=== PATIENT | female | born 1980 | race African-American/Black ===

== ENCOUNTER 2025-03-05 15:30 | Emergency (ER) | payer MEDICAID, SELFPAY ==
--- NOTE | 2025-03-05 15:31 | ED_ITS ---
HPI - Recheck/Abnormal Lab/Rx General Chief Complaint: Recheck/Abnormal Lab/Rx Stated Complaint: abn labs from [facility] Time Seen by Provider: 03/05/25 17:59 Source: patient and EMS Mode of arrival: EMS Limitations: no limitations and other History of Present Illness ED Provider: Toy Block PA-C HPI narrative: 45-year-old female brought in by ambulance with medical history of HTN, Bipolar 1 and 2, PTSD, anxiety, polysubstance use disorder presents to the emergency department due to abnormal labs that were drawn at [facility] today. She states she is feeling aggravated that she had to leave the facility. She does not have any physical complaints at this time. Denies chest pain, shortness of breath, nausea, vomiting, diarrhea, headache, fever, muscle aches. MD complaint: other (Hypokalemia) Related Data Allergies Allergy/AdvReac Type Severity Reaction Status Date / Time No Known Allergies Allergy Verified 03/05/25 15:44 Review of Systems 2 Review of Systems: CONST: Negative for fever, body aches and chills. HENT: Negative for neck pain/stiffness, headache, congestion, sore throat, swelling. EYES: Negative for discharge/pain or vision changes. RESP: Negative for cough/hemoptysis and shortness of breath. CV: Negative chest pain, difficulty breathing, palpitations. ABD: Negative pain, nausea, vomiting. : Negative increase frequency, dysuria, blood in urine or stool. MUSC: Negative for muscle aches, edema. SKIN: Negative rash, lesions/sores. NEURO: Negative headache, dizziness, weakness. Yes all other systems are reviewed and are negative [facility] Social History Social History Alcohol intake: former Smoked in Last 30 Days: No Substance Use Type: Crack/Cocaine, Heroin and Opiates Substance Use Frequency: Chronic Longstanding Advance Directives: No Advance Directives Information Provided: No Physical Exam 2 Vital Signs: Vital Signs: Last Vital Signs Temp 98.3 F 03/05/25 23:30 Pulse 96 03/05/25 23:30 Resp 18 03/05/25 23:30 BP 145/96 H 03/05/25 23:30 Pulse Ox 98 03/05/25 23:30 O2 Del Method Room Air 03/05/25 22:00 BMI result Body Mass Index 35.7 GENERAL APPEARANCE: ?AxOx4, generally well-appearing, no acute distress. HEENT: ?NC, AT. MMM. EOMI, clear conjunctiva, oropharynx clear. NECK: ?Supple without lymphadenopathy.? No stiffness or restricted ROM. HEART:? Normal rate and regular rhythm, normal S1/S1, no m/r/g LUNGS:? CTAB, moving air well. No crackles or wheezes are heard. ABDOMEN: ?Soft, nontender, nondistended with good bowel sounds heard. BACK: No CVAT, no obvious deformity. EXTREMITIES: ?Without cyanosis, clubbing or edema. NEUROLOGICAL: ?Grossly nonfocal. Alert and oriented, moving all 4 extremities. Observed to ambulate with normal gait. Skin: ?Warm and dry without any rash. Course Course Course Narrative: sign out pending repeat K she is asymptomatic will recc oral K as outpatient improved to 3.2 will dose with additional 20meq K Medications Administered Discontinued Medications Generic Name Dose Route Start Last Admin Trade Name Freq PRN Reason Stop Dose Admin Potassium Chloride 10 meq in 100 mls @ 100 mls/hr 03/05/25 16:45 03/05/25 21:00 Potassium Chloride/H20 IV 03/05/25 20:44 Infused Q1H FAYE Infusion Potassium Chloride 40 meq 03/05/25 16:31 03/05/25 16:51 Potassium Chloride Er 20 Meq Tab.Er.Prt PO 03/05/25 16:32 40 meq ONCE ONE Administration Potassium Chloride 20 meq 03/05/25 22:26 03/05/25 22:38 Potassium Chloride Er 20 Meq Tab.Er.Prt PO 03/05/25 22:27 20 meq ONCE ONE Administration Medical Decision Making Medical Decision Making [facility] Narrative: 45-year-old female brought in by ambulance with medical history of presents to the emergency department due to abnormal labs that were drawn at [facility], facility is also reporting a lengthened QTc interval. She states she is feeling aggravated that she had to leave the facility. She does not have any physical complaints at this time VSS, no acute distress, nontoxic appearing. Physical exam benign lungs CTA, normal rate and rhythm no murmurs/rubs/gallops. Labs reveal a low potassium at 2.5, magnesium WNL. We will replete with 40 mEq IV and 40 mEq oral. EKG reveals a normal QTc interval at 461. Course 19:29- patient tolerating repletion well. Currently sleeping in hospital stretcher with 10/07 sitter present. Consult placed to Betsy Ruff PA-C for admission. He recommended to recheck labs 2 hours after repletion to see if potassium levels are still low. Then will admit to medicine. Patient is about to begin her last bag of IV potassium. Case discussed and signed out with my attending Dr. Stoddard who will now be resuming care of the patient. Differential Diagnosis Differential Diagnoses: The differential diagnosis associated with the presentation includes Hypokalemia Other electrolyte abnormalities Dysrhythmia Dehydration Admission/Observation Consideration of admission/observation: Escalation of care including admission/observation considered Consult Healthcare Provider Management of the patient was discussed with: Hospitalist Hospitalist PORSHA Ruff recommended to check potassium level 2 hours after repletion. If potassium is still low will admit to medicine. Lab Data MDM Lab Attestation statement: I reviewed the patient's lab results. 03/05/25 15:51 03/05/25 22:06 Labs: Lab Results 03/05/25 03/05/25 Range/Units 15:51 22:06 WBC 4.6 L (4.8-10.8) X10*3/uL RBC 3.89 L (4.20-5.50) X10*6/uL Hgb 12.5 (12.0-16.0) g/dl Hct 34.4 L (37.0-47.0) % MCV 88.4 (80.0-98.0) fL MCH 32.1 (27.0-33.0) pg MCHC 36.3 H (31.0-35.0) g/dl RDW 15.1 (11.0-16.0) % Plt Count 257 (160-400) X10*3/uL MPV 10.2 (9.4-12.3) fL Immature Gran % (Auto) 0.7 H (0.0-0.4) % Neut % (Auto) 64.8 (45-73) % Lymph % (Auto) 18.6 L (20-40) % [place] % (Auto) 13.5 H (2-11) % Eos % (Auto) 2.2 (0-4) % Baso % (Auto) 0.2 (0-2) % Lymph # (Auto) 0.9 L (1.2-4.9) X10*3/uL [place] # (Auto) 0.6 (0.1-1.2) X10*3/uL Eos # (Auto) 0.1 (0.0-0.4) X10*3/uL Baso # (Auto) 0.0 (0.0-0.2) X10*3/uL Abs Immat Gran (auto) 0.03 (0.00-0.03) X10*3/uL Absolute Neuts (auto) 3.0 (2.0-8.3) x10*3/uL Absolute Nucleated RBC 0.000 (0.0-0.012) X10*3/uL Nucleated RBC % (auto) 0.0 (0.0-0.2) /100WBC Sodium 141 (135-145) mmol/L Potassium 2.5 L* 3.2 L D (3.3-5.1) mmol/L Chloride 109 H (96-108) mmol/L Carbon Dioxide 27 (22-29) mmol/L Anion Gap 8 L (12-20) BUN 8 L (9-16) mg/dL Creatinine 0.82 (0.5-1.4) mg/dL Estim Creat Clear Calc 101.1 Estimated GFR > 60 Random Glucose 105 (60-115) mg/dL Calcium 8.9 (8.4-10.2) mg/dL Magnesium 1.8 (1.6-2.6) mg/dL Total Bilirubin 0.4 (0.0-1.0) mg/dL AST 40 H (5-31) U/L ALT 44 H (0-31) U/L Alkaline Phosphatase 124 H (39-117) U/L Total Protein 6.7 (6.5-8.0) g/dL Albumin 4.1 (3.5-5.0) g/dL Independent Interpretation I performed an independent interpretation of an: EKG Interpretation: Independently interpreted the EKG: Vent. Rate : 86 BPM Atrial Rate : 86 BPM P-R Int : 142 ms QRS Dur : 78 ms QT Int : 386 ms P-R-T Axes : 39 60 -6 degrees QTcB Int : 461 ms Normal sinus rhythm Cannot rule out Anterior infarct , age undetermined T wave abnormality, consider inferior ischemia Abnormal ECG External Record Review External record reviewed: Inpatient record, Office record and Outpatient record Chronic Conditions Patient?s care impacted by: Hypertension Discharge Plan Discharge Clinical Impression: Acute hypokalemia Patient Disposition: Home, Self-Care Instructions: Hypokalemia (ED) Additional Instructions: start taking 20meq potassium daily return for worsening symptoms or concerns repeat labs Saturday Interventions: ED Discharge Assessment Last Done: 03/05/25 23:30 Discharge Date/Time: 03/05/25 23:32 Print Language: Bolivian
[2025-03-05 15:42] VITALS: BP 128/89; BP 132/76; PULSE 108; PULSE 96; RESP 15; TEMP 36.7; O2SAT 97; BMI 35.7
--- NOTE | 2025-03-05 15:44 | ECG_ITS ---
Test Reason : ABNORMAL LAB Blood Pressure : */* mmHG Vent. Rate : 86 BPM Atrial Rate : 86 BPM P-R Int : 142 ms QRS Dur : 78 ms QT Int : 386 ms P-R-T Axes : 39 60 -6 degrees QTcB Int : 461 ms Normal sinus rhythm Cannot rule out Anterior infarct , age undetermined T wave abnormality, consider inferior ischemia Abnormal ECG No previous ECGs available Referred By: Mckayla Yeager Electronically Signed By: SHANA POST MD
[2025-03-05 15:46] VITALS: BP 135/87; PULSE 98; RESP 15; TEMP 36.7; O2SAT 96
[2025-03-05 15:54] LABS: MANUAL DIFF FLAG NO
[2025-03-05 16:16] LABS: Alanine Aminotransferase 44 U/L (0-31); Albumin Level 4.1 g/dL (3.5-5.0); Anion Gap 8 (12-20); Aspartate Amino Transferase 40 U/L (5-31); Bilirubin Total 0.4 mg/dL (0.0-1.0); Blood Urea Nitrogen 8 mg/dL (9-16); Calcium 8.9 mg/dL (8.4-10.2); Carbon Dioxide 27 mmol/L (22-29); Chloride 109 mmol/L (96-108); Creatinine Clr Calc Pharmacy 101.1; Estimated Glomerular Filt Rate > 60; Glucose Random 105 mg/dL (60-115); Magnesium 1.8 mg/dL (1.6-2.6); Potassium 2.5 mmol/L (3.3-5.1); Sodium 141 mmol/L (135-145); Total Protein 6.7 g/dL (6.5-8.0)
[2025-03-05 16:18] LABS: Basophils Percent Auto 0.2 % (0-2); Eosinophils Absolute Auto 0.1 X10*3/uL (0.0-0.4); Eosinophils Percent Auto 2.2 % (0-4); Hematocrit 34.4 % (37.0-47.0); Hemoglobin 12.5 g/dl (12.0-16.0); Imm Gran Abs Auto 0.03 X10*3/uL (0.00-0.03); Imm Gran Pct Auto 0.7 % (0.0-0.4); Lymphocytes Absolute Auto 0.9 X10*3/uL (1.2-4.9); Lymphocytes Percent Auto 18.6 % (20-40); Mean Corpuscular HGB Conc 36.3 g/dl (31.0-35.0); Mean Corpuscular Hemoglobin 32.1 pg (27.0-33.0); Mean Corpuscular Volume 88.4 fL (80.0-98.0); Mean Platelet Volume 10.2 fL (9.4-12.3); Monocytes Absolute Auto 0.6 X10*3/uL (0.1-1.2); Monocytes Percent Auto 13.5 % (2-11); Neutrophils Percent Auto 64.8 % (45-73); Platelet Count 257 X10*3/uL (160-400); Red Blood Count 3.89 X10*6/uL (4.20-5.50); Red Cell Distribution Width 15.1 % (11.0-16.0); White Blood Count 4.6 X10*3/uL (4.8-10.8)
[2025-03-05] MEDS: Potassium Chloride/H20 10 MEQ/100 ML PIGGYBACK 100 MEQ IV ×4 (16:51→19:52)
[2025-03-05] MEDS: Potassium Chloride ER 20 MEQ TAB.ER.PRT 40 MEQ PO (16:51)
[2025-03-05 17:08] LABS: Alkaline Phosphatase 124 U/L (39-117)
--- NOTE | 2025-03-05 18:01 | PC.NURSE ---
Patient is a 45 yo female presents from [facility] on a section 21 with hypokalemia and a prolonged QT. inspector open die applied and NSR noted. Lungs clear bilat. Respirations even and non-labored. Abdomen soft, non-tender with positive bowel sounds. Positive pedal pulses with no edema. Belomgings removed and placed in the locked crisis closet.
--- NOTE | 2025-03-05 18:34 | MHC.EDTECH ---
patient refused to have her BP checked
[2025-03-05 19:24] VITALS: BP 141/92; PULSE 92; RESP 16; TEMP 36.6; O2SAT 99
--- NOTE | 2025-03-05 19:59 | PC.NURSE ---
this rn assumed care of pt @ 1900. pt medicated according to dec 1:[address]
--- NOTE | 2025-03-05 21:57 | PC.NURSE ---
vanessa alberts from [facility] called [facility] for update on pt status. made aware plan to repeat labs @ 2200 and reevaluate disposition once repeat labwork comes back.
[2025-03-05 22:00] VITALS: BP 145/96; PULSE 96; RESP 18; TEMP 36.8; O2SAT 98
[2025-03-05 22:19] LABS: Potassium 3.2 mmol/L (3.3-5.1)
[2025-03-05] MEDS: Potassium Chloride ER 20 MEQ TAB.ER.PRT PO (22:38)
--- NOTE | 2025-03-05 23:27 | PC.NURSE ---
rn to rn report given to nursing telemarketer supervisor at [facility] prior to discharge report given to ems prior to transport iv removed prior to transport
[2025-03-05 23:30] VITALS: BP 145/96; PULSE 96; RESP 18; TEMP 36.8; O2SAT 98
== END 2025-03-05 23:32 | disposition home or self-care (01) ==
PROVIDERS: Emergency Provider Emergency Medicine
DX: E87.6 Hypokalemia (principal); I10 Essential (primary) hypertension; F31.9 Bipolar disorder, unspecified; F43.10 Post-traumatic stress disorder, unspecified
CPT/HCPCS: 36415; 80053; 83735; 84132; 85025; 93005; 96365; 96366; 99285; J3480

== ENCOUNTER → 2025-03-05 15:44 | Outpatient (BNV) | payer MEDICAID, SELFPAY | PROVIDERS: Emergency Provider Emergency Medicine; Visit Provider Internal Medicine Cardiovascular Disease | DX: R94.31 Abnormal electrocardiogram [ECG] [EKG] (principal) | CPT/HCPCS: 93010 ==